=== PATIENT | male | born 1980 | race Caucasian/White ===

== ENCOUNTER 2022-07-08 01:25 | Day surgery (SDC) | payer OTHER, SELFPAY ==
[2022-06-26 08:52] VITALS: BMI 26.5
[2022-07-08 11:42] VITALS: BP 113/65; PULSE 67; RESP 20; TEMP 36.2; O2SAT 99
[2022-07-08] MEDS: LACTATED RINGERS 1,000 ML 150 ML IV CONT (11:55)
--- NOTE | 2022-07-08 12:17 | P.PNAN_ITS ---
Anes - Initial Pre Proc Eval Procedure: Operation Date: 07/08/22 13:00 Proposed Procedures p Screening Colonoscopy - Robb Davalos MD Date/Time: 07/08/22 12:17 Surgeon: Robb Davalos MD Pre Op Diagnosis: family hx colon ca, fam hx colon polyps, neoplasm Patient Data Age: 41 Gender: M Height: 1.68 m Weight: 72.8 kg Last Vital Signs Temp 97.2 F L 07/08/22 11:42 Pulse 67 07/08/22 11:42 Resp 20 07/08/22 11:42 BP 113/65 07/08/22 11:42 Pulse Ox 99 07/08/22 11:42 O2 Del Method Room Air 07/08/22 11:42 Allergies Allergy/AdvReac Type Severity Reaction Status Date / Time No Known Allergies Allergy Verified 07/08/22 11:41 Home Medications Medication Instructions Recorded Confirmed Type No Home Medications 06/26/22 06/26/22 History Patient hx anesthesia problems: none Family hx anesthesia problems: none Results Review: All pre-operative results and documents have been reviewed as part of the pre-operative evaluation. [facility] Social History Social History Smoking status: Never smoker Alcohol intake: current Alcohol use details: occasional Substance use: never Substance use type: does not use Living arrangements: with family Spiritual care concerns: No Anes - Eval Final PreProcedure Day of Procedure 07/08/22 12:17 Patient weight: normal Heart: regular rate and rhythm Lungs: clear to auscultation Airway: Mallampati scale class II Neurological: alert and oriented Last oral intake: >/= 8 hours ASA classification: I Emergent: no Anesthetic plan: proceed Anesthesia type and monitoring: general GIVS and standard monitoring Results Review: All pre-operative results and documents have been reviewed as part of the pre- operative evaluation. Informed Consent: The patient's anesthetic plan and its attendant risks and benefits were discussed with the patient/family/POA. Questions were solicited and answers provided to the satisfaction of the patient/family/POA.
--- NOTE | 2022-07-08 12:34 | P.HP_ITS ---
H&P: HPI History of Present Illness Date/Time: 07/08/22 12:34 Chief Complaint: Family history of colon polyps and cancer Narrative: this is a 41-year-old white male patient presents for screening colonoscopy. Patient is family history is significant for colon cancer in his grandmother grandfather and cousin. His father and sister both have had colon polyps. Patient presents today for neoplasia screening. Previous colonoscopy was unremarkable. Patient states his current weight appetite bowel movements are normal. He denies abdominal pain. He has had no bleeding. Review of Systems Review of Systems: Review of systems noncontributory. [facility] Social History Social History Smoking status: Never smoker Alcohol intake: current Alcohol use details: occasional Substance use: never Substance use type: does not use Living arrangements: with family Spiritual care concerns: No Meds Home Medications and Allergies Home Medications Medication Instructions Recorded Confirmed Type No Home Medications 06/26/22 06/26/22 History Allergies Allergy/AdvReac Type Severity Reaction Status Date / Time No Known Allergies Allergy Verified 07/08/22 11:41 Vital Signs Vital Signs - 24 hr 07/08/22 11:42 Temperature 97.2 F L Pulse Rate 67 Respiratory Rate 20 Blood Pressure 113/65 Pulse Oximetry 99 Oxygen Delivery Room Air Exam Narrative: Physical exam reveals patient to be alert. Vital signs stable. HEENT exam is unremarkable. Patient is anicteric. Lungs are clear to auscultation and percussion. Heart is without murmur or extra sounds. Abdominal exam bowel sounds present soft nontender with no organomegaly. Digital external rectal exam is normal. Assessment and Plan Assessment and plan (1) Family hx of colon cancer: Code(s): Z80.0 - Family history of malignant neoplasm of digestive organs Status: Acute Assessment and Plan: Patient has family history of colon cancer and polyps within several generations. Includes grandmother grandfather cousin Who have had colon cancer. His father and sister her have had colon polyps. patient presents today for screening colonoscopy. Plan is for colonoscopy at least every 5 years. History is somewhat suspicious for underlying Lama syndrome.
[2022-07-08 13:35] VITALS: BP 94/56; PULSE 68; RESP 14; O2SAT 96
[2022-07-08 13:45] VITALS: BP 98/85; PULSE 60; RESP 22; O2SAT 98
[2022-07-08 13:55] VITALS: BP 94/61; PULSE 59; RESP 22; O2SAT 100
== END 2022-07-08 14:06 | disposition home or self-care (01) ==
PROVIDERS: PCP Internal Medicine; Visit Provider Internal Medicine Gastroenterology
PROC: 0DJD8ZZ Inspection of Lower Intestinal Tract, Via Natural or Artificial Opening Endoscopic (ICD-10-PCS; CPT 45378; principal; 2022-07-08 13:00)
DX: Z12.11 Encounter for screening for malignant neoplasm of colon (principal); Z80.0 Family history of malignant neoplasm of digestive organs; Z83.71 Family history of colonic polyps; K64.8 Other hemorrhoids
CPT/HCPCS: 45378; J2704; J7120